=== PATIENT | male | born 1960 | race Two or more races ===

== ENCOUNTER 2019-09-06 05:57 | Inpatient (IN) | payer MEDICARE, OTHER ==
[2019-09-06] VITALS (16 sets, daily range): BP systolic 86–151; BP diastolic 50–98
[~2019-09-06] VITALS: Ht 185.4 cm; Wt 148.8 kg
--- NOTE | 2019-09-06 07:06 | Anethesia Preoperative Eval ---
Anesthesia Pre-op PMH/ROS General Date of Evaluation: Sep 06, 2019 Anesthesiologist: Kishore ASA Score: ASA 3 Mallampati Score Class I : Soft palate, uvula, fauces, pillars visible Class II: Soft palate, uvula, fauces visible Class III: Soft palate, base of uvula visible Class IV: Only hard plate visible Mallampati Classification: Class III Surgeon: Fatuma Diagnosis: BPH and bladder stones Surgical Procedure: Open simple prostatectomy and cystolitholopaxy Anesthesia History: none Family History: no anesthesia problems Allergies: Uncoded Allergies: plastic tape (Allergy, Intermediate, RASHES, 09/06/19) Medications: see eMAR Patient NPO?: Yes NPO Date: Sep 06, 2019 NPO Time: 00:00 Past Medical History Cardiovascular: Reports: HTN, arrhythmia - afib, other - HLD; Denies: CAD, [place], valve dz Pulmonary: Reports: JOSE; Denies: asthma, COPD, other Gastrointestinal/Genitourinary: Reports: GERD, other - BPH; Denies: CRI, ESRD Neurologic/Psychiatric: Reports: TIA; Denies: dementia, CVA, depression/anxiety, other Endocrine: Reports: DM - am glucose 128; Denies: hypothyroidism, steroids, other HEENT: Denies: cataract (L), cataract (R), glaucoma, GAKONA (L), GAKONA (R), other Hematology/Immune: Reports: DVT - left lower extremity-on xarelto, discontinued 13 days ago; Denies: anemia, bleeding disorder, other Musculoskeletal/Integumentary: Reports: other - LBP; Denies: OA, RA, DJD, DDD, edema Other: obesity PSxH Narrative: Denies Anesthesia Pre-op Phys. Exam Physician Exam Last Vital Signs Date Time Temp Pulse Resp B/P (MAP) Pulse Ox O2 Delivery O2 Flow Rate FiO2 09/06/19 06:41 97.7 107 20 124/98 (107) 96 Constitutional: NAD Cardiovascular: other - irregular Respiratory: other - dimished breath sounds bilaterally Airway Exam Mallampati Score: Class III MO: limited ROM: limited Teeth: intact Anesthesia Pre-op A/P Labs see chart Studies Pre-op Studies: EKG - afib, rate controlled, CXR - no acute cardiopulmonary process Risk Assessment & Plan Assessment: ASA III Plan: GA with modified RSI Status Change Before Surgery: No Pre-Antibiotics Drug: Ancef 2g Given Within 1 Hr of Incision: Yes Ileana Whitehead MD Sep 06, 2019 07:06
[2019-09-06] MEDS ORDERED: Bacitracin 50000 Units Vial ONE (07:09)
[2019-09-06] MEDS ORDERED: NITROFURANTOIN25 MG PO (07:11)
[2019-09-06] MEDS ORDERED: XARELTO10 MG ORAL (07:11)
[2019-09-06] MEDS ORDERED: CRESTOR10 M2 ORAL (07:12)
[2019-09-06] MEDS ORDERED: JANUMET 50-1,01 EACH ORAL (07:12)
[2019-09-06] MEDS ORDERED: METOPROLOL SUCC25 MG ORAL (07:12)
[2019-09-06] MEDS ORDERED: Succinylcholine 20mg/ml 10ml vial ONE (07:22)
[2019-09-06] MEDS ORDERED: Rocuronium Bromide 50mg/5ml Inj IV ONE (07:23)
[2019-09-06] MEDS ORDERED: NS Irrig 1000ml ONE (07:30)
[2019-09-06] MEDS ORDERED: Sterile Water Irrig 1000ml IRRIG ONE (07:30)
[2019-09-06] MEDS ORDERED: LR 1000ml ONE (07:30)
[2019-09-06] MEDS ORDERED: ProvayBlue 5mg/ml 10ml amp INJ ONE (07:30)
[2019-09-06] MEDS ORDERED: Propofol 200mg/20ml IV ONE (07:31)
[2019-09-06] MEDS ORDERED: Midazolam 2mg/2ml Inj ONE (07:31)
[2019-09-06] MEDS ORDERED: Lidocaine 1% MPF 10mg/ml 5ml ONE (07:31)
[2019-09-06] MEDS ORDERED: fentaNYL 100 mcg/2 mL IV ONE (07:31)
[2019-09-06] MEDS ORDERED: Metoclopramide 10mg/2ml Inj ONE (07:32)
--- NOTE | 2019-09-06 08:04 | Pre-Procedure Note/Attestation ---
Pre-Procedure Note/Attestation Complete Prior to Procedure Planned Procedure: not applicable Procedure Narrative: open prostatectomy with cystolyolopaxy Indications for Procedure Pre-Operative Diagnosis: bladder stones retention Attestation I attest that I discussed the nature of the procedure; its benefits; risks and complications; and alternatives (and the risks and benefits of such alternatives ), prior to the procedure, with the patient (or the patient's legal financial service representative). I attest that, if there was a reasonable possibility of needing a blood transfusion, the patient (or the patient's legal financial service representative) was given the [facility] standardized written summary, pursuant to the Eusebio Puckett Blood Safety Act ([place] Health and Safety Code # 1645, as amended). I attest that I re-evaluated the patient just prior to the surgery and that there has been no change in the patient's H&P, except as documented below: Fran Burris MD Sep 06, 2019 08:04
[2019-09-06] MEDS ORDERED: NS Irrig 1000ml IRRIG ONE (08:32)
[2019-09-06] MEDS ORDERED: LR 1000ml 1,000 ML IVLG SCH (08:41)
[2019-09-06] MEDS ORDERED: Hydromorphone 0.5mg/0.5ml inj IVP PRN (08:45)
[2019-09-06] MEDS ORDERED: fentaNYL 100 mcg/2 mL IV PRN (08:45)
[2019-09-06] MEDS ORDERED: LORazepam Inj 2mg/ml 1ml IV PRN (08:45)
[2019-09-06] MEDS ORDERED: Ketorolac 30mg Inj IV PRN (08:45)
[2019-09-06] MEDS ORDERED: DiphenhydrAMINE 50mg/ml Inj IVP PRN (08:45)
[2019-09-06] MEDS ORDERED: Midazolam 2mg/2ml Inj IVP PRN (08:45)
[2019-09-06] MEDS ORDERED: Metoclopramide 10mg/2ml Inj IVP PRN (08:45)
[2019-09-06] MEDS ORDERED: Sugammadex Sodium 200mg/2ml vial IV ONE (09:16)
--- NOTE | 2019-09-06 09:34 | Brief Operative Note ---
Immediate Post Operative Note Operative Note Pre-op Diagnosis: bladder stones retention Procedure: open prostectomy with cystolopaxy Post-op Diagnosis: same Post-op Diagnosis: same as pre-op Surgeon: Seth Burris Anesthesia: general Specimen: yes Complications: none Condition: stable Fluids: 1000 Estimated Blood Loss: minimal Implant(s) used?: No Fran Burris MD Sep 06, 2019 09:34
--- NOTE | 2019-09-06 09:37 | Immediate Post-Op Evaluation ---
Immediate Post-Op Evalulation Immediate Post-Op Evalulation Procedure: open prostatectomy and cystolitholopaxy Date of Evaluation: Sep 06, 2019 Time of Evaluation: 09:37 IV Fluids: 1.1L Blood Products: 0 Urinary Output: 0 Blood Pressure Systolic: 106 Blood Pressure Diastolic: 59 Pulse Rate: 90 Respiratory Rate: 18 O2 Sat by Pulse Oximetry: 97 Temperature (Fahrenheit): 97 Pain Score (1-10): 0 Nausea: No Vomiting: No Complications 0 Patient Status: awake, reacts, patent, none Hydration Status: adequate Drug: Ancef 2g Given Within 1 Hr of Incision: Yes Ileana Whitehead MD Sep 06, 2019 09:37
[2019-09-06 10:16] LABS: BASOPHILS % (AUTO) 0.4 % (0.0-2.0); EOSINOPHILS % (AUTO) 1.4 % (0.0-3.0); HEMATOCRIT 42.6 % (42.0-52.0); HEMOGLOBIN 14.2 G/DL (14.2-18.0); LYMPHOCYTES % (AUTO) 21.5 % (20.0-45.0); MEAN CORPUSCULAR VOLUME 90 FL (80-99); MONOCYTES % (AUTO) 7.3 % (1.0-10.0); NEUTROPHILS % (AUTO) 69.3 % (45.0-75.0); PLATELET COUNT 222 K/UL (150-450); RED BLOOD COUNT 4.72 M/UL (4.70-6.10); RED CELL DISTRIBUTION WIDTH 12.1 % (11.6-14.8); WHITE BLOOD COUNT 12.3 K/UL (4.8-10.8)
[2019-09-06 10:28] LABS: ANION GAP 8 mmol/L (5-15); BLOOD UREA NITROGEN 14 mg/dL (7-18); CALCIUM 10.6 MG/DL (8.5-10.1); CARBON DIOXIDE 28 MMOL/L (21-32); CHLORIDE 106 MMOL/L (98-107); CREATININE 1.5 MG/DL (0.55-1.30); PHOSPHORUS 3.3 MG/DL (2.5-4.9); POTASSIUM 4.6 MMOL/L (3.5-5.1); SODIUM 142 MMOL/L (136-145)
--- NOTE | 2019-09-06 10:45 | NUR ---
NURSE NOTES: Received report from TENNILLE Mendieta. Pt is a/o x 4, in bed. Denies any pain at this time. is at the bedside. Bautista catheter is patent. Lt hand IV access is patent. LR is running at this time. Bed in lowest position, call light within reach. Will continue to monitor.
--- NOTE | 2019-09-06 13:13 | NUR ---
CASE MANAGEMENT:REVIEW 58YR OLD MALE HERE FOR ELECTIVE SURGERY SI: BLADDER STONES RETENTION 97.2 195 18 124/74 95% ON 3L/NC WBC+12.3 CR+1.5 IS: TO SURGERY: OPEN PROCTECTOMY W/CYSTOLOPAXY IV ANCEF Q8HRS IVF@100/HR IV DILAUDID Q3HRS PRN : TO MED/SURG POST OP
[2019-09-06] MEDS: D5 1/2NS w/KCl 20mEq 1,000 ML IV SCH ×2 (13:54→23:04)
--- NOTE | 2019-09-06 14:40 | NUR ---
NURSE NOTES: Reconciles home meds with Dr. Esquivel. Dr. Esquivel ordered continue metoprolol, nitrofurantoin, crestor.
[2019-09-06] MEDS: ceFAZolin sod 2 GM in D5W 110 ML IV SCH ×2 (15:52→23:05)
[2019-09-06] MEDS: Docusate 100mg cap ORAL SCH (17:45)
--- NOTE | 2019-09-06 18:00 | NUR ---
NURSE NOTES: CBI (Intake 19,000ml, Output 18,000ml)
--- NOTE | 2019-09-06 19:24 | NUR ---
HAND-OFF: Report given to TENNILLE Gonzalez. Pt is stable.
--- NOTE | 2019-09-06 19:25 | NUR ---
NURSE NOTES: Received patient on bed, awake and verbally responsive. no sob. on nc @ 3lpm. with on going CBI. denies any pain and discomfort at the moment. family at the bedside. reiterated to call or ask for assistance. bed locked and in lowest position. call light and light button within easy reach. will continue plan of care.
[2019-09-06] MEDS: Atorvastatin 20mg tab ORAL SCH (20:56)
[2019-09-07 04:00] VITALS: BP 105/66
[2019-09-07 06:37] LABS: BASOPHILS % (AUTO) 0.6 % (0.0-2.0); EOSINOPHILS % (AUTO) 0.2 % (0.0-3.0); HEMATOCRIT 38.5 % (42.0-52.0); LYMPHOCYTES % (AUTO) 12.2 % (20.0-45.0); MEAN CORPUSCULAR VOLUME 91 FL (80-99); MONOCYTES % (AUTO) 13.4 % (1.0-10.0); NEUTROPHILS % (AUTO) 73.5 % (45.0-75.0); PLATELET COUNT 200 K/UL (150-450); RED BLOOD COUNT 4.23 M/UL (4.70-6.10); RED CELL DISTRIBUTION WIDTH 12.5 % (11.6-14.8); WHITE BLOOD COUNT 16.2 K/UL (4.8-10.8)
[2019-09-07 06:59] LABS: ANION GAP 6 mmol/L (5-15); BLOOD UREA NITROGEN 17 mg/dL (7-18); CALCIUM 9.9 MG/DL (8.5-10.1); CARBON DIOXIDE 28 MMOL/L (21-32); CHLORIDE 105 MMOL/L (98-107); CREATININE 1.7 MG/DL (0.55-1.30); POTASSIUM 4.5 MMOL/L (3.5-5.1); SODIUM 139 MMOL/L (136-145)
--- NOTE | 2019-09-07 07:19 | NUR ---
HAND-OFF: Report given to TENNILLE Jimenez. Pt in stable condition.
--- NOTE | 2019-09-07 07:22 | NUR ---
NURSE NOTES: Received report from TENNILLE Gonzalez. Rounding done with outgoing nurse. Pt a/o x 4, in bed. Denies any pain at this time. Surgical site dressing is stain. Pt is on CBI, light pinkish noted. Rt hand IV access is patent. Bed in lowest position, call light within reach. Will continue to monitor.
[2019-09-07 08:00] VITALS: BP 118/82
[2019-09-07] MEDS: Metoprolol Succinate XL 25mg tab ORAL SCH (08:42)
[2019-09-07] MEDS: Docusate 100mg cap ORAL SCH ×2 (08:42→17:14)
[2019-09-07] MEDS: D5 1/2NS w/KCl 20mEq 1,000 ML IV SCH (08:43)
--- NOTE | 2019-09-07 09:52 | NUR ---
NURSE NOTES: Dr. Burris ordered d/c iv fluid, change the dressing, keflex 500mg qid po. Order read back and will put it in.
--- NOTE | 2019-09-07 10:13 | 48 Hour Post Anesthesia Eval ---
Post Anesthesia Evaluation Procedure: open prostatectomy and cystolitholopaxy Date of Evaluation: Sep 07, 2019 Time of Evaluation: 10:12 Blood Pressure Systolic: 118 0: 64 Pulse Rate: 72 Respiratory Rate: 22 Temperature (Fahrenheit): 97.6 O2 Sat by Pulse Oximetry: 98 Airway: patent Nausea: No Vomiting: No Pain Intensity: 3 Hydration Status: adequate Cardiopulmonary Status: stable Mental Status/LOC: patient returned to baseline Follow-up Care/Observations: n/a Post-Anesthesia Complications: none Follow-up care needed: N/A Aayush Plasencia MD Sep 07, 2019 10:13
[2019-09-07] MEDS: Cephalexin 500mg cap ORAL SCH ×3 (11:50→23:34)
[2019-09-07 12:00] VITALS: BP 105/65
--- NOTE | 2019-09-07 12:46 | NUR ---
P.T Note: P.T evaluation competed and tx initiated. Please refer to P.T evaluation for current functional status. Pt is alert, O x 4 , pleasant and cooperative. present during P.T evaluation /tx. Pt is mostly limited by pain in the abdominal area and catheter insertions aggravated by movement initiations and walking. Pt require extended time and MIN A x 1 to completed supine to/from sitting , CGA x 1 for transfers and SBA X 1 for gait/ambulation activities using the FWW. Will continue with POC with progression of activities. Pt is cleared for OOB activities and hallway ambulation using the FWW with nursing supervision ( for IV pole assist ). Thank you for this referral.
[2019-09-07] MEDS ORDERED: NS Irrig 2000ml IRRIG ONE (14:53)
[2019-09-07] MEDS ORDERED: NS Irrig 1000ml ONE (14:53)
[2019-09-07] MEDS ORDERED: NS Irrig 4000ml IRRIG ONE (15:04)
--- NOTE | 2019-09-07 15:30 | Consultation ---
DATE OF CONSULTATION: 09/07/2019 INTERNAL MEDICINE CONSULTATION CONSULTING PHYSICIAN: Desmond Esquivel M.D. REFERRING PHYSICIAN: Fran Burris M.D. HISTORY OF PRESENT ILLNESS: This is a very pleasant 58-year-old male, who has undergone prostatectomy yesterday by Dr. Fran Burris. Surgery was uncomplicated and required cystolapaxy, this was done for bladder stone retention. The patient is doing well postoperative day #1. He has Bautista in place with bladder irrigation ongoing. PAST MEDICAL HISTORY: The patient has a complex past history, notable for obesity, previous TIA, atrial fibrillation, hyperlipidemia, previous left lower extremity DVT, sleep apnea, pulmonary embolism, BPH, low back pain, and diabetes mellitus. HOME MEDICATIONS: Reviewed and reconciled in chart and includes Xarelto. The patient has been taking Lipitor, metoprolol at home along with Xarelto PREVIOUS SURGERIES: None reported. REVIEW OF SYSTEMS: Denies any headaches, hematemesis, melena, hematochezia, night sweats, or weight loss. PHYSICAL EXAMINATION: GENERAL: Reveals a 58-year-old male. HEENT: Unremarkable. CHEST: Clear breath sounds bilaterally with normal heart sounds. ABDOMEN: Soft. EXTREMITIES: There is no edema. NEUROLOGIC: Nonfocal. LABORATORY DATA: Lab testing postop shows creatinine 1.7, glucose 161, hemoglobin of 13, white count 61666. IMPRESSION: 1. Postop day #1, status post prostatectomy and cystolapaxy. 2. Hyperglycemia/diabetes mellitus. 3. Atrial fibrillation, previously on anticoagulation. 4. Hypertension. 5. Hyperlipidemia. 6. History of previous DVT and PE. 7. History of chronic atrial fibrillation. DISCUSSION: Admit to the hospital. We will hold off anticoagulation for another 24 to 48 hours. Discussed with his outpatient industrial seamstress, Dr. Ritesh Atwood. Check labs in the a.m. Continue bladder irrigation. Initiate diabetes monitoring. We will follow carefully. Desmond Esquivel M.D. DR: JOANNA JOB#: [id number] CC:
[2019-09-07 16:00] VITALS: BP 134/70
--- NOTE | 2019-09-07 16:01 | Consultation ---
History of Present Illness General Date patient seen: Sep 07, 2019 Present Illness HPI This is a 14-year-old male who recently had his prostate removed by urology. Patient is very high risk postoperatively surgically given his extensive DVT history anticoagulation and surgery size and overall condition and comorbidities. Surgery was called to help evaluate as patient was having abdominal pain postoperatively needs better pain control. Patient seen, patient evaluated, chart reviewed. Allergies: Uncoded Allergies: plastic tape (Allergy, Intermediate, RASHES, 09/06/19) Medication History Scheduled Metoprolol Succinate* (Metoprolol Succinate*), 25 MG ORAL DAILY, (Reported) Rivaroxaban (Xarelto*), 20 MG ORAL DAILY, (Reported) Rosuvastatin Calcium* (Crestor*), 10 MG ORAL DAILY, (Reported) Sitagliptin Phos/Metformin Hcl (Janumet 50-1,000 Mg Tablet), 1 TAB ORAL TWICE A DAY, (Reported) Miscellaneous Medications Nitrofurantoin Macrocrystal (Nitrofurantoin), 100 MG PO, (Reported) Patient History History Provided By: Patient, Family Member, Medical Record, PMD Healthcare decision maker KEEGAN MARTINEZ - Resuscitation status Full Code Advanced Directive on File Past Medical/Surgical History Past Medical/Surgical History: (1) Urinary retention (2) Bladder stones Review of Systems Review of Symptoms General ROS: no weight loss or fever Psychological ROS: no depression or mood changes, no memory loss Ophthalmic ROS: no visual changes or eye irritation ENT ROS: no nasal congestion, hearing loss, dizziness Allergy and Immunology ROS: no allergic symptoms or urticaria Hematological and Lymphatic ROS: no swollen glands, unusual bleeding or bruising Endocrine ROS: no polyuria, polydipsia, weight changes, temperature intolerance Respiratory ROS: no cough, shortness of breath, or wheezing Cardiovascular ROS: no chest pain or dyspnea on exertion Gastrointestinal ROS: abdominal pain, bright red blood in stool. Musculoskeletal ROS: no myalgias or arthralgias Neurological ROS: no TIA or stroke symptoms Dermatological ROS: no new or changing skin lesions, rashes or pruritis Physical Exam Physical Exam General appearance: alert, cooperative, no distress, appears stated age Head: Normocephalic, without obvious abnormality, atraumatic Eyes: conjunctivae/corneas clear. PERRL, EOM's intact. Fundi benign Throat: Lips, mucosa, and tongue normal. Teeth and gums normal Neck: supple, symmetrical, trachea midline, no adenopathy, thyroid: not enlarged, symmetric, no tenderness/mass/nodules, no carotid bruit and no JVD Lungs: clear to auscultation bilaterally Heart: regular rate and rhythm, S1, S2 normal, no murmur, click, rub or gallop Abdomen: soft, tender. Bowel sounds absento masses, no organomegaly dressing in place saturated Extremities: extremities normal, atraumatic, no cyanosis or edema Pulses: 2+ and symmetric Skin: Skin color, texture, turgor normal. No rashes or lesions Neurologic: Grossly normal Last 24 Hour Vital Signs Date Time Temp Pulse Resp B/P (MAP) Pulse Ox O2 Delivery O2 Flow Rate FiO2 09/07/19 12:00 99.0 84 20 105/65 (78) 90 09/07/19 10:13 72 22 98 09/07/19 09:00 Room Air 09/07/19 08:42 99 118/82 09/07/19 08:00 98.0 99 18 118/82 (94) 93 09/07/19 04:00 98.6 122 18 105/66 (79) 94 09/06/19 23:53 98.5 114 17 102/54 (70) 93 09/06/19 21:00 Nasal Cannula 3.0 09/06/19 20:00 98.7 121 20 120/74 (89) 96 09/06/19 16:00 97.6 92 20 125/74 (91) 99 Intake and Output 09/06/19 09/07/19 19:00 07:00 Intake Total 1910 ml 1310 ml Output Total 2700 ml 1500 ml Balance -790 ml -190 ml Intake Oral 100 ml IV Total 1910 ml 1210 ml Output Urine Total 1000 ml 1500 ml Other 1700 ml Laboratory Tests Test 09/07/19 05:40 White Blood Count 16.2 K/UL (4.8-10.8) H Red Blood Count 4.23 M/UL (4.70-6.10) L Hemoglobin 13.0 G/DL (14.2-18.0) L Hematocrit 38.5 % (42.0-52.0) L Mean Corpuscular Volume 91 FL (80-99) Mean Corpuscular Hemoglobin 30.7 PG (27.0-31.0) Mean Corpuscular Hemoglobin Concent 33.7 G/DL (32.0-36.0) Red Cell Distribution Width 12.5 % (11.6-14.8) Platelet Count 200 K/UL (150-450) Mean Platelet Volume 7.9 FL (6.5-10.1) Neutrophils (%) (Auto) 73.5 % (45.0-75.0) Lymphocytes (%) (Auto) 12.2 % (20.0-45.0) L Monocytes (%) (Auto) 13.4 % (1.0-10.0) H Eosinophils (%) (Auto) 0.2 % (0.0-3.0) Basophils (%) (Auto) 0.6 % (0.0-2.0) Sodium Level 139 MMOL/L (136-145) Potassium Level 4.5 MMOL/L (3.5-5.1) Chloride Level 105 MMOL/L (98-107) Carbon Dioxide Level 28 MMOL/L (21-32) Anion Gap 6 mmol/L (5-15) Blood Urea Nitrogen 17 mg/dL (7-18) Creatinine 1.7 MG/DL (0.55-1.30) H Estimat Glomerular Filtration Rate 41.3 mL/min (>60) Glucose Level 161 MG/DL (74-106) H Calcium Level 9.9 MG/DL (8.5-10.1) Ionized Calcium (Measured) 1.29 mmol/L (1.10-1.35) Height (Feet): 6 Height (Inches): 1.00 Weight (Pounds): 328 Medications Current Medications Medications (Trade) Dose Ordered Sig/William Route PRN Reason Start Time Stop Time Status Last Admin Dose Admin Acetaminophen (Tylenol) 650 mg Q4H PRN ORAL FEVER 09/06/19 09:30 10/06/19 09:29 Acetaminophen (Tylenol) 650 mg Q6H PRN ORAL Mild Pain (Pain Scale 1-3) 09/06/19 09:30 10/06/19 09:29 Atorvastatin Calcium (Lipitor) 20 mg BEDTIME ORAL 09/06/19 21:00 10/06/19 20:59 Cephalexin (Keflex) 500 mg Q6HR ORAL 09/07/19 12:00 09/14/19 11:59 09/07/19 11:50 Dextrose (Dextrose 50%) 25 ml Q30M PRN IV Hypoglycemia 09/07/19 10:45 10/07/19 10:44 Dextrose (Dextrose 50%) 50 ml Q30M PRN IV Hypoglycemia 09/07/19 10:45 10/07/19 10:44 Docusate Sodium (Colace) 100 mg TWICE A DAY ORAL 09/06/19 18:00 10/06/19 17:59 09/07/19 08:42 Hydromorphone HCl (Dilaudid) 2 mg Q3H PRN IVP pain score 7-10 09/06/19 11:33 09/13/19 11:32 09/07/19 11:57 Metoprolol Succinate (Toprol XL) 25 mg DAILY ORAL 09/07/19 09:00 10/07/19 08:59 09/07/19 08:42 Nitrofurantoin (Macrobid) 100 mg DAILY ORAL 09/07/19 09:00 10/07/19 08:59 09/07/19 08:42 Ondansetron HCl (Zofran) 4 mg Q6H PRN IVP Nausea & Vomiting 09/06/19 09:30 10/06/19 09:29 Temazepam (RestoriL) 7.5 mg DAILYPRN PRN ORAL Insomnia 09/06/19 11:34 09/13/19 11:33 Assessment/Plan Problem List: (1) Urinary retention ICD Codes: R33.9 - Retention of urine, unspecified SNOMED: 049694559 (2) Bladder stones Assessment & Plan: Abdominal pain status post prostatectomy by urology Doing well Slowly getting out of bed History of DVT prior on anticoagulation High risk for bleeding postoperatively Started on prophylactic heparin Hold Lovenox given renal Tolerating diet Urine stable Dressings changed We will monitor closely he is very high risk for complication Thank you ICD Codes: N21.0 - Calculus in bladder SNOMED: [id number] Fred Foley Sep 07, 2019 16:01
--- NOTE | 2019-09-07 19:12 | NUR ---
HAND-OFF: Report given to TENNILLE Gonzalez. Pt is stable.
--- NOTE | 2019-09-07 19:40 | NUR ---
NURSE NOTES: Received report from TENNILLE Jimenez. Received pt in bed, AOx4, complaint of 4/10 pain, pt refused pain medication at this time. Abdominal surgical dressing c/d/i. CBI pinkish color without any clots noted. Bed in lowest position and locked, side rails up x 2, call light within reach. at bedside. Will continue to monitue.
[2019-09-07 20:00] VITALS: BP 108/75
[2019-09-07] MEDS: Atorvastatin 20mg tab ORAL SCH (20:32)
[2019-09-07] MEDS ORDERED: Enoxaparin 30mg Inj SUBQ SCH (21:00)
[2019-09-07] MEDS: Heparin 5000 units/ml inj SUBQ SCH (21:49)
[2019-09-07 23:56] VITALS: BP 131/81
--- NOTE | 2019-09-08 | NUR ---
NURSE NOTES: Hunt anchor changed per pt's request because states "hunt anchor is stained".
--- NOTE | 2019-09-08 03:15 | Operative Note - Dictated ---
DATE OF OPERATION: 09/06/2019 PREOPERATIVE DIAGNOSES: Chronic urinary retention, BPH, and bladder stones. POSTOPERATIVE DIAGNOSES: Chronic urinary retention, BPH, and bladder stones. OPERATION: Simple retropubic prostatectomy with open cystolitholapaxy. GLOBAL SUPPLY CHAIN VICE PRESIDENT: Fran Burris M.D. ANESTHESIA: General. FINDINGS: Very large prostate with multiple bladder stones. INDICATIONS FOR SURGERY: The patient had acute urinary retention. He failed several voiding trials. He had a very large more than 182 g prostate as well as bladder stones. Treatment options were explained to him in great length including all potential complications. He signed a consent. PROCEDURE IN DETAIL: He was brought to the operating room, placed in supine position, prepped and draped in standard fashion. A midline low anterior incision was made space was opened and bladder was mobilized to get into the prostate. Prostate capsule was opened approximately 5 cm and adenoma was enucleated in 1 piece preserving the external sphincter. After that, cystolitholapaxy with removal of bladder stones through the bladder neck was performed and hemostatic sutures at 5 and 7 o'clock as well as bladder mucosa into the prostatic capsule with [id number] sutures. Hemostasis. Capsule was closed over a 3-way 24-Faroese Bautista catheter. CBI was started. No evidence of clots. Estimated blood was approximately 50 mL. Wound was closed in multiple layers. Anna were for the skin . ESTIMATED BLOOD LOSS: 50 mL. Fran Burris M.D. DR: ASHLEY JOB#: [id number] CC:
[2019-09-08 04:58] VITALS: BP 119/80
[2019-09-08] MEDS: Cephalexin 500mg cap ORAL SCH ×3 (06:09→17:40)
[2019-09-08] MEDS: Heparin 5000 units/ml inj SUBQ SCH ×3 (06:11→20:56)
[2019-09-08 06:34] LABS: INR 1.1 (0.9-1.1)
[2019-09-08 06:49] LABS: ANION GAP 10 mmol/L (5-15); BLOOD UREA NITROGEN 13 mg/dL (7-18); CALCIUM 10.9 MG/DL (8.5-10.1); CARBON DIOXIDE 25 MMOL/L (21-32); CHLORIDE 102 MMOL/L (98-107); CREATININE 1.2 MG/DL (0.55-1.30); POTASSIUM 4.4 MMOL/L (3.5-5.1); SODIUM 137 MMOL/L (136-145)
--- NOTE | 2019-09-08 07:00 | NUR ---
NURSE NOTES: Received call from Nhi from the lab, lavender top that was drawn this am clotted. She will send someone to redraw lavender top. Endorsed to am nurse TENNILLE Teran.
--- NOTE | 2019-09-08 07:38 | NUR ---
HAND-OFF: Report given to TENNILLE Teran. Pt in stable condition.
[2019-09-08 08:00] VITALS: BP 130/61
[2019-09-08 08:22] LABS: HEMATOCRIT 39.4 % (42.0-52.0); HEMOGLOBIN 13.2 G/DL (14.2-18.0); MEAN CORPUSCULAR VOLUME 91 FL (80-99); PLATELET COUNT 234 K/UL (150-450); RED BLOOD COUNT 4.35 M/UL (4.70-6.10); RED CELL DISTRIBUTION WIDTH 12.4 % (11.6-14.8); WHITE BLOOD COUNT 19.9 K/UL (4.8-10.8)
[2019-09-08] MEDS: Docusate 100mg cap ORAL SCH ×2 (08:33→17:40)
[2019-09-08] MEDS: Metoprolol Succinate XL 25mg tab ORAL SCH (08:33)
[2019-09-08] MEDS ORDERED: Milk of Magnesia 30ml Ud ORAL SCH (10:30)
[2019-09-08 12:00] VITALS: BP 131/74
--- NOTE | 2019-09-08 15:55 | Pulmonology Progress Note ---
Assessment/Plan Assessment/Plan IMPRESSION: 1. Postop day #3, status post prostatectomy and cystolapaxy. 2. Hyperglycemia/diabetes mellitus. 3. Atrial fibrillation, previously on anticoagulation. 4. Hypertension. 5. Hyperlipidemia. 6. History of previous DVT and PE. 7. History of chronic atrial fibrillation. DISCUSSION: Check labs in the a.m. Continue bladder irrigation. Initiate diabetes monitoring. I will follow carefully. Noted high WBC; will observe Desmond Esquivel M.D. Subjective Interval Events: WBC 19 k; no new symptoms Constitutional: Reports: no symptoms HEENT: Repors: no symptoms Respiratory: Reports: no symptoms Cardiovascular: Reports: no symptoms Gastrointestinal/Abdominal: Reports: no symptoms Genitourinary: Reports: no symptoms Allergies: Uncoded Allergies: plastic tape (Allergy, Intermediate, RASHES, 09/06/19) Objective Last 24 Hour Vital Signs Date Time Temp Pulse Resp B/P (MAP) Pulse Ox O2 Delivery O2 Flow Rate FiO2 09/08/19 12:00 98.0 78 20 131/74 (93) 94 09/08/19 09:00 Room Air 09/08/19 08:33 105 130/61 09/08/19 08:00 98.1 105 20 130/61 (84) 95 09/08/19 04:58 98.5 108 20 119/80 (93) 97 09/07/19 23:56 98.2 121 20 131/81 (98) 96 09/07/19 21:00 Nasal Cannula 2.0 09/07/19 20:00 98.6 103 20 108/75 (86) 97 09/07/19 16:00 98.4 104 20 134/70 (91) 93 Intake and Output 09/07/19 09/08/19 19:00 07:00 Intake Total 200 ml 700 ml Output Total 1700 ml Balance 200 ml -1000 ml Intake Oral 700 ml IV Total 200 ml Output Urine Total 1700 ml General Appearance: no acute distress HEENT: normocephalic Respiratory/Chest: chest wall non-tender, lungs clear Cardiovascular: normal peripheral pulses, normal rate Abdomen: normal bowel sounds Microbiology Date/Time Source Procedure Growth Status 09/06/19 06:30 Nasal Nares MRSA Culture - Final NO METHICILLIN RESISTANT STAPH AUREUS... Complete Laboratory Tests 09/08/19 05:35: Prothrombin Time 11.9H, Prothromb Time International Ratio 1.1, Activated Partial Thromboplast Time 26, Sodium Level 137, Potassium Level 4.4, Chloride Level 102, Carbon Dioxide Level 25, Anion Gap 10, Blood Urea Nitrogen 13, Creatinine 1.2, Estimat Glomerular Filtration Rate > 60, Glucose Level 132H, Calcium Level 10.9H 09/08/19 07:46: White Blood Count 19.9H, Red Blood Count 4.35L, Hemoglobin 13.2L, Hematocrit 39.4L, Mean Corpuscular Volume 91, Mean Corpuscular Hemoglobin 30.2, Mean Corpuscular Hemoglobin Concent 33.4, Red Cell Distribution Width 12.4, Platelet Count 234, Mean Platelet Volume 7.8, Neutrophils (%) (Auto) , Lymphocytes (%) ( Auto) , Monocytes (%) (Auto) , Eosinophils (%) (Auto) , Basophils (%) (Auto) , Differential Total Cells Counted 100, Neutrophils % (Manual) 71, Lymphocytes % ( Manual) 16L, Monocytes % (Manual) 11H, Eosinophils % (Manual) 2, Basophils % ( Manual) 0, Band Neutrophils 0, Platelet Estimate Adequate, Platelet Morphology Normal, Red Blood Cell Morphology Normal Current Medications Medications (Trade) Dose Ordered Sig/William Route PRN Reason Start Time Stop Time Status Last Admin Dose Admin Acetaminophen (Tylenol) 650 mg Q4H PRN ORAL FEVER 09/06/19 09:30 10/06/19 09:29 Acetaminophen (Tylenol) 650 mg Q6H PRN ORAL Mild Pain (Pain Scale 1-3) 09/06/19 09:30 10/06/19 09:29 Atorvastatin Calcium (Lipitor) 20 mg BEDTIME ORAL 09/06/19 21:00 10/06/19 20:59 09/07/19 20:32 Cephalexin (Keflex) 500 mg Q6HR ORAL 09/07/19 12:00 09/14/19 11:59 09/08/19 12:35 Dextrose (Dextrose 50%) 25 ml Q30M PRN IV Hypoglycemia 09/07/19 10:45 10/07/19 10:44 Dextrose (Dextrose 50%) 50 ml Q30M PRN IV Hypoglycemia 09/07/19 10:45 10/07/19 10:44 Docusate Sodium (Colace) 100 mg TWICE A DAY ORAL 09/06/19 18:00 10/06/19 17:59 09/08/19 08:33 Heparin Sodium (Porcine) (Heparin 5000 units/ml) 5,000 units EVERY 8 HOURS SUBQ 09/07/19 22:00 10/07/19 21:59 09/08/19 14:57 Hydromorphone HCl (Dilaudid) 2 mg Q3H PRN IVP pain score 7-10 09/06/19 11:33 09/13/19 11:32 09/08/19 01:24 Metoprolol Succinate (Toprol XL) 25 mg DAILY ORAL 09/07/19 09:00 10/07/19 08:59 09/08/19 08:33 Ondansetron HCl (Zofran) 4 mg Q6H PRN IVP Nausea & Vomiting 09/06/19 09:30 10/06/19 09:29 Temazepam (RestoriL) 7.5 mg DAILYPRN PRN ORAL Insomnia 09/06/19 11:34 09/13/19 11:33 Desmond Esquivel MD Sep 08, 2019 15:55
[2019-09-08 16:00] VITALS: BP 100/65
--- NOTE | 2019-09-08 16:12 | NUR ---
CASE MANAGEMENT:REVIEW 09/08/19 SI: POD#2 SIMPLE RETROPUBIC PROCTECTOMY WITH OPEN CYSTOLITHOLAPAXY BLADDER STONES RETENTION 98.1 105 20 130/61 95% ON RA WBC+19.9 CA+ 10.9 BG 132 PT 11.9 IS: HEPARIN SQ Q8HR KEFLEX PO Q6HR TOPROL XL PO QD IV DILAUDID Q3HR/PRN : 3E MED SURG UNIT DCP: HOME WHEN STABLE PLAN: URINE CX- PENDING
--- NOTE | 2019-09-08 17:10 | Surgery Progress Note ---
Surgery Progress Note Subjective Symptoms: improved, tolerating diet, voiding well Objective Last 24 Hour Vital Signs Date Time Temp Pulse Resp B/P (MAP) Pulse Ox O2 Delivery O2 Flow Rate FiO2 09/08/19 12:00 98.0 78 20 131/74 (93) 94 09/08/19 09:00 Room Air 09/08/19 08:33 105 130/61 09/08/19 08:00 98.1 105 20 130/61 (84) 95 09/08/19 04:58 98.5 108 20 119/80 (93) 97 09/07/19 23:56 98.2 121 20 131/81 (98) 96 09/07/19 21:00 Nasal Cannula 2.0 09/07/19 20:00 98.6 103 20 108/75 (86) 97 I&O Intake and Output 09/07/19 09/08/19 19:00 07:00 Intake Total 200 ml 700 ml Output Total 1700 ml Balance 200 ml -1000 ml Intake Oral 700 ml IV Total 200 ml Output Urine Total 1700 ml Dressing: saturated Wound: clean Cardiovascular: RSR Respiratory: clear, decreased breath sounds Abdomen: soft, non-tender, present bowel sounds Extremities: no edema, no tenderness, no cyanosis Laboratory Tests Test 09/08/19 05:35 09/08/19 07:46 Prothrombin Time 11.9 SEC (9.30-11.50) H Prothromb Time International Ratio 1.1 (0.9-1.1) Activated Partial Thromboplast Time 26 SEC (23-33) Sodium Level 137 MMOL/L (136-145) Potassium Level 4.4 MMOL/L (3.5-5.1) Chloride Level 102 MMOL/L (98-107) Carbon Dioxide Level 25 MMOL/L (21-32) Anion Gap 10 mmol/L (5-15) Blood Urea Nitrogen 13 mg/dL (7-18) Creatinine 1.2 MG/DL (0.55-1.30) Estimat Glomerular Filtration Rate > 60 mL/min (>60) Glucose Level 132 MG/DL (74-106) H Calcium Level 10.9 MG/DL (8.5-10.1) H White Blood Count 19.9 K/UL (4.8-10.8) H Red Blood Count 4.35 M/UL (4.70-6.10) L Hemoglobin 13.2 G/DL (14.2-18.0) L Hematocrit 39.4 % (42.0-52.0) L Mean Corpuscular Volume 91 FL (80-99) Mean Corpuscular Hemoglobin 30.2 PG (27.0-31.0) Mean Corpuscular Hemoglobin Concent 33.4 G/DL (32.0-36.0) Red Cell Distribution Width 12.4 % (11.6-14.8) Platelet Count 234 K/UL (150-450) Mean Platelet Volume 7.8 FL (6.5-10.1) Neutrophils (%) (Auto) % (45.0-75.0) Lymphocytes (%) (Auto) % (20.0-45.0) Monocytes (%) (Auto) % (1.0-10.0) Eosinophils (%) (Auto) % (0.0-3.0) Basophils (%) (Auto) % (0.0-2.0) Differential Total Cells Counted 100 Neutrophils % (Manual) 71 % (45-75) Lymphocytes % (Manual) 16 % (20-45) L Monocytes % (Manual) 11 % (1-10) H Eosinophils % (Manual) 2 % (0-3) Basophils % (Manual) 0 % (0-2) Band Neutrophils 0 % (0-8) Platelet Estimate Adequate Platelet Morphology Normal Red Blood Cell Morphology Normal Plan Problems: (1) Urinary retention Assessment & Plan: Abdominal pain status post prostatectomy by urology Doing well Slowly getting out of bed History of DVT prior on anticoagulation High risk for bleeding postoperatively Started on prophylactic heparin yesterday Hold Lovenox given renal Tolerating diet Urine stable Dressings changed We will monitor closely he is very high risk for complication Thank you (2) Bladder stones Fred Foley Sep 08, 2019 17:10
[2019-09-08] MEDS: Piperacillin/Tazobactam 3.375 GM in NS 110 ML IVPB SCH (17:41)
--- NOTE | 2019-09-08 19:56 | NUR ---
NURSES NOTE: Met pt in bed, A/OX4, able to express needs. Family at bed side. Pt denies pain at this time. No outward s/s of distress noted. Breathing is even and unlabored on RA. [address] way hunt catheter in place, draining with gravity. Ns infusing. Incision site, abdomen, open to air with jessica. IV R hand patent, infusing properly with no s/s of infiltration or infection. All due meds will be given. Call light within reach, bed at lowest level. Pt will continue to be monitored.
[2019-09-08 20:00] VITALS: BP 148/79
--- NOTE | 2019-09-08 20:06 | NUR ---
NURSE NOTES: Patient remained safe during my shift CBI clear except patient when ambulating it gets pink, denies pain, Urine culture sent. patient reported abdominal pain and distention unable to pass bowel since 09/[address] Burris aware order received patient able to move bowel before the medication administration and refused taking the medication. ambulated in the hole way with spouse.
[2019-09-08] MEDS: Atorvastatin 20mg tab ORAL SCH (20:56)
[2019-09-09] VITALS: BP 145/70
[2019-09-09] MEDS: Piperacillin/Tazobactam 3.375 GM in NS 110 ML IVPB SCH ×3 (00:29→16:41)
[2019-09-09] MEDS: Cephalexin 500mg cap ORAL SCH ×4 (00:29→17:32)
[2019-09-09] MEDS: Heparin 5000 units/ml inj SUBQ SCH ×3 (06:13→21:35)
[2019-09-09 06:41] LABS: BASOPHILS % (AUTO) 0.8 % (0.0-2.0); EOSINOPHILS % (AUTO) 2.4 % (0.0-3.0); HEMATOCRIT 36.3 % (42.0-52.0); HEMOGLOBIN 12.4 G/DL (14.2-18.0); LYMPHOCYTES % (AUTO) 20.7 % (20.0-45.0); MEAN CORPUSCULAR VOLUME 90 FL (80-99); MONOCYTES % (AUTO) 11.4 % (1.0-10.0); NEUTROPHILS % (AUTO) 64.8 % (45.0-75.0); PLATELET COUNT 204 K/UL (150-450); RED BLOOD COUNT 4.05 M/UL (4.70-6.10); RED CELL DISTRIBUTION WIDTH 12.5 % (11.6-14.8); WHITE BLOOD COUNT 10.7 K/UL (4.8-10.8)
[2019-09-09 07:00] LABS: ANION GAP 8 mmol/L (5-15); BLOOD UREA NITROGEN 12 mg/dL (7-18); CALCIUM 11.1 MG/DL (8.5-10.1); CARBON DIOXIDE 29 MMOL/L (21-32); CHLORIDE 105 MMOL/L (98-107); CREATININE 1.2 MG/DL (0.55-1.30); SODIUM 142 MMOL/L (136-145)
--- NOTE | 2019-09-09 07:45 | NUR ---
NURSE NOTES: Pt lying in bed w/ at bedside, bed in lowest position, and call light within reach. Pt A&Ox4, VSS, and in no apparent distress. IV site intact/asymptomatic & H/L'd and surgical site C/D/I w/some erythema noted around jessica; continuous bladder irrigation still in place w/pink urinary output. Pt has no complaints or concerns at this time. Will continue to monitor.
[2019-09-09 08:00] VITALS: BP 112/78
--- NOTE | 2019-09-09 08:00 | NUR ---
HAND OFF: Report given to robb Conrad. Pt in stable condition.
[2019-09-09] MEDS: Docusate 100mg cap ORAL SCH ×2 (09:16→17:32)
[2019-09-09] MEDS: Metoprolol Succinate XL 25mg tab ORAL SCH (09:16)
--- NOTE | 2019-09-09 11:40 | Surgery Progress Note ---
Surgery Progress Note Subjective Symptoms: improved, tolerating diet, voiding well, passing flatus, BM Objective Last 24 Hour Vital Signs Date Time Temp Pulse Resp B/P (MAP) Pulse Ox O2 Delivery O2 Flow Rate FiO2 09/09/19 09:16 104 112/78 09/09/19 09:00 Room Air 09/09/19 08:00 97.0 104 20 112/78 (89) 100 09/09/19 00:00 98.3 73 145/70 (95) 97 09/08/19 21:00 Room Air 09/08/19 20:00 97.5 122 18 148/79 (102) 96 09/08/19 16:00 98.5 112 20 100/65 (77) 96 09/08/19 12:00 98.0 78 20 131/74 (93) 94 I&O Intake and Output 09/08/19 09/09/19 19:00 07:00 Intake Total 300 ml 1295.0 ml Output Total 4600 ml Balance 300 ml -3305.0 ml Intake Oral 300 ml 1240 ml IV Total 55.0 ml Output Urine Total 4600 ml # Bowel Movements 1 Dressing: dry Wound: clean Cardiovascular: RSR Respiratory: clear Abdomen: soft, tenderness, present bowel sounds, non-distended Extremities: no edema, no tenderness, no cyanosis Laboratory Tests Test 09/09/19 06:00 White Blood Count 10.7 K/UL (4.8-10.8) Red Blood Count 4.05 M/UL (4.70-6.10) L Hemoglobin 12.4 G/DL (14.2-18.0) L Hematocrit 36.3 % (42.0-52.0) L Mean Corpuscular Volume 90 FL (80-99) Mean Corpuscular Hemoglobin 30.7 PG (27.0-31.0) Mean Corpuscular Hemoglobin Concent 34.3 G/DL (32.0-36.0) Red Cell Distribution Width 12.5 % (11.6-14.8) Platelet Count 204 K/UL (150-450) Mean Platelet Volume 7.8 FL (6.5-10.1) Neutrophils (%) (Auto) 64.8 % (45.0-75.0) Lymphocytes (%) (Auto) 20.7 % (20.0-45.0) Monocytes (%) (Auto) 11.4 % (1.0-10.0) H Eosinophils (%) (Auto) 2.4 % (0.0-3.0) Basophils (%) (Auto) 0.8 % (0.0-2.0) Sodium Level 142 MMOL/L (136-145) Potassium Level 4.0 MMOL/L (3.5-5.1) Chloride Level 105 MMOL/L (98-107) Carbon Dioxide Level 29 MMOL/L (21-32) Anion Gap 8 mmol/L (5-15) Blood Urea Nitrogen 12 mg/dL (7-18) Creatinine 1.2 MG/DL (0.55-1.30) Estimat Glomerular Filtration Rate > 60 mL/min (>60) Glucose Level 147 MG/DL (74-106) H Calcium Level 11.1 MG/DL (8.5-10.1) H Plan Problems: (1) Urinary retention (2) Bladder stones Assessment & Plan: Abdominal pain status post prostatectomy by urology Doing well Slowly getting out of bed History of DVT prior on anticoagulation High risk for bleeding postoperatively Started on prophylactic heparin Hold Lovenox given renal Tolerating diet Urine stable wound noted will monitor heparin diet ambulatory improving We will monitor closely he is very high risk for complication Thank you Fred Foley Sep 09, 2019 11:40
[2019-09-09 12:00] VITALS: BP 133/88
[2019-09-09 16:00] VITALS: BP 133/70
--- NOTE | 2019-09-09 16:44 | NUR ---
PT note Attempted to see patient x 2 for treatment but patient states that he just finished walking with his this AM. Patient seen in PM, ambulating with his in the hallway. Movements are antalgic but steady. 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 Patient is aware of his limitations. He knows his HEP's. Patient and verbalized understanding of the need to increase OOB activities and ambulation.
--- NOTE | 2019-09-09 17:21 | NUR ---
NURSE NOTES: Notified Dr. Esquivel of pt's pulse of 120/apical pulse of 115 and irregular pulse on palpation; MD aware of pt's hx of a-fib. No new orders given. Will continue to monitor.
--- NOTE | 2019-09-09 17:34 | Pulmonology Progress Note ---
Assessment/Plan Assessment/Plan IMPRESSION: 1. Postop day #4, status post prostatectomy and cystolapaxy. 2. Hyperglycemia/diabetes mellitus. 3. Atrial fibrillation, previously on anticoagulation. 4. Hypertension. 5. Hyperlipidemia. 6. History of previous DVT and PE. 7. History of chronic atrial fibrillation. DISCUSSION: Check labs in the a.m. Continue bladder irrigation. Initiate diabetes monitoring. I will follow carefully. Noted high WBC; added abx yesterday Desmond Esquivel M.D. Subjective Interval Events: Feeling better, HR high Constitutional: Reports: no symptoms HEENT: Repors: no symptoms Respiratory: Reports: no symptoms Cardiovascular: Reports: no symptoms Allergies: Uncoded Allergies: plastic tape (Allergy, Intermediate, RASHES, 09/06/19) Objective Last 24 Hour Vital Signs Date Time Temp Pulse Resp B/P (MAP) Pulse Ox O2 Delivery O2 Flow Rate FiO2 09/09/19 16:30 115 09/09/19 16:00 97.3 120 20 133/70 (91) 100 09/09/19 12:00 98.7 121 20 133/88 (103) 100 09/09/19 09:16 104 112/78 09/09/19 09:00 Room Air 09/09/19 08:00 97.0 104 20 112/78 (89) 100 09/09/19 00:00 98.3 73 145/70 (95) 97 09/08/19 21:00 Room Air 09/08/19 20:00 97.5 122 18 148/79 (102) 96 Intake and Output 09/08/19 09/09/19 19:00 07:00 Intake Total 300 ml 1295.0 ml Output Total 4600 ml Balance 300 ml -3305.0 ml Intake Oral 300 ml 1240 ml IV Total 55.0 ml Output Urine Total 4600 ml # Bowel Movements 1 General Appearance: no acute distress HEENT: normocephalic Respiratory/Chest: chest wall non-tender Cardiovascular: normal peripheral pulses Abdomen: normal bowel sounds Microbiology Date/Time Source Procedure Growth Status 09/08/19 17:30 Indwelling Cath Urine Culture - Preliminary NO GROWTH Resulted Laboratory Tests 09/09/19 06:00: White Blood Count 10.7, Red Blood Count 4.05L, Hemoglobin 12.4L, Hematocrit 36.3L, Mean Corpuscular Volume 90, Mean Corpuscular Hemoglobin 30.7, Mean Corpuscular Hemoglobin Concent 34.3, Red Cell Distribution Width 12.5, Platelet Count 204, Mean Platelet Volume 7.8, Neutrophils (%) (Auto) 64.8, Lymphocytes (% ) (Auto) 20.7, Monocytes (%) (Auto) 11.4H, Eosinophils (%) (Auto) 2.4, Basophils (%) (Auto) 0.8, Sodium Level 142, Potassium Level 4.0, Chloride Level 105, Carbon Dioxide Level 29, Anion Gap 8, Blood Urea Nitrogen 12, Creatinine 1.2, Estimat Glomerular Filtration Rate > 60, Glucose Level 147H, Calcium Level 11.1H Current Medications Medications (Trade) Dose Ordered Sig/William Route PRN Reason Start Time Stop Time Status Last Admin Dose Admin Acetaminophen (Tylenol) 650 mg Q4H PRN ORAL FEVER 09/06/19 09:30 10/06/19 09:29 Acetaminophen (Tylenol) 650 mg Q6H PRN ORAL Mild Pain (Pain Scale 1-3) 09/06/19 09:30 10/06/19 09:29 Atorvastatin Calcium (Lipitor) 20 mg BEDTIME ORAL 09/06/19 21:00 10/06/19 20:59 09/08/19 20:56 Cephalexin (Keflex) 500 mg Q6HR ORAL 09/07/19 12:00 09/14/19 11:59 09/09/19 17:32 Dextrose (Dextrose 50%) 25 ml Q30M PRN IV Hypoglycemia 09/07/19 10:45 10/07/19 10:44 Dextrose (Dextrose 50%) 50 ml Q30M PRN IV Hypoglycemia 09/07/19 10:45 10/07/19 10:44 Docusate Sodium (Colace) 100 mg TWICE A DAY ORAL 09/06/19 18:00 10/06/19 17:59 09/09/19 17:32 Heparin Sodium (Porcine) (Heparin 5000 units/ml) 5,000 units EVERY 8 HOURS SUBQ 09/07/19 22:00 10/07/19 21:59 09/09/19 13:52 Hydromorphone HCl (Dilaudid) 2 mg Q3H PRN IVP pain score 7-10 09/06/19 11:33 09/13/19 11:32 09/08/19 01:24 Metoprolol Succinate (Toprol XL) 25 mg DAILY ORAL 09/07/19 09:00 10/07/19 08:59 09/09/19 09:16 Ondansetron HCl (Zofran) 4 mg Q6H PRN IVP Nausea & Vomiting 09/06/19 09:30 10/06/19 09:29 Piperacillin Sod/ Tazobactam Sod 3.375 gm/Sodium Chloride 110 ml @ 27.5 mls/hr Q8H IVPB 09/08/19 16:30 09/15/19 16:29 09/09/19 16:41 Temazepam (RestoriL) 7.5 mg DAILYPRN PRN ORAL Insomnia 09/06/19 11:34 09/13/19 11:33 Desmond Esquivel MD Sep 09, 2019 17:34
--- NOTE | 2019-09-09 19:15 | NUR ---
NURSE NOTES: Receive a report from TENNILLE Liu. Round is done. Pt is lying in bed and awake, having guests at bed side. No acute distress noted. Denies any pain. On N/S irrigation via 3way hunt catheter and draining urine with blood clots. And checking urine output. Call light within reach. Will continue to monitor.
--- NOTE | 2019-09-09 19:24 | NUR ---
HAND-OFF: Report given to TENNILLE Ann.
[2019-09-09 20:00] VITALS: BP 139/96
--- NOTE | 2019-09-09 21:00 | NUR ---
NURSE NOTES: Surgery site is open without any discharge clean but noted redness on skin along the jessica. Offer to apply ice bag but refuses. On running N/S irrigation via hunt catheter. Will continue to monitor.
[2019-09-09] MEDS: Atorvastatin 20mg tab ORAL SCH (21:34)
[2019-09-10] VITALS: BP 115/77
[2019-09-10] MEDS: Cephalexin 500mg cap ORAL SCH ×3 (00:16→12:13)
[2019-09-10] MEDS: Piperacillin/Tazobactam 3.375 GM in NS 110 ML IVPB SCH ×2 (00:16→08:53)
[2019-09-10 04:00] VITALS: BP 148/105
--- NOTE | 2019-09-10 04:35 | NUR ---
NURSE NOTES: Noted less blood clots via hunt catheter with NS irrigation. Pt is aware of removing hunt catheter today. Encourage ambulation. Will continue to monitor.
[2019-09-10] MEDS: Heparin 5000 units/ml inj SUBQ SCH ×2 (05:51→14:00)
[2019-09-10 06:34] LABS: EOSINOPHILS % (AUTO) 4.9 % (0.0-3.0); HEMATOCRIT 35.6 % (42.0-52.0); HEMOGLOBIN 12.2 G/DL (14.2-18.0); LYMPHOCYTES % (AUTO) 25.8 % (20.0-45.0); MEAN CORPUSCULAR VOLUME 89 FL (80-99); NEUTROPHILS % (AUTO) 57.3 % (45.0-75.0); PLATELET COUNT 238 K/UL (150-450); RED BLOOD COUNT 3.98 M/UL (4.70-6.10)
[2019-09-10 06:48] LABS: ANION GAP 11 mmol/L (5-15); BLOOD UREA NITROGEN 13 mg/dL (7-18); CALCIUM 10.8 MG/DL (8.5-10.1); CARBON DIOXIDE 27 MMOL/L (21-32); CHLORIDE 105 MMOL/L (98-107); CREATININE 1.3 MG/DL (0.55-1.30); POTASSIUM 3.6 MMOL/L (3.5-5.1); SODIUM 143 MMOL/L (136-145)
--- NOTE | 2019-09-10 07:45 | NUR ---
HAND-OFF: Report given to TENNILLE Liu. Round is done.
--- NOTE | 2019-09-10 07:45 | NUR ---
NURSE NOTES: Pt lying in bed w/ at bedside, bed in lowest position, and call light within reach. Pt A&Ox4, VSS, and in no apparent distress. IV site intact/asymptomatic & H/L'd; surgical site C/D/I & MAKEDA; and bladder still being irrigated continuously. Reminded pt F/C will bed D/C'd this morning; pt verbalized understanding and had no questions or concerns at this time. Will continue monitor.
[2019-09-10 08:00] VITALS: BP 154/101
--- NOTE | 2019-09-10 08:45 | NUR ---
NURSE NOTES: D/C'd pt's Bautista and emptied about 700 ml of pink urine from drainage bag; pt tolerated fairly well. Informed pt to notify me once he voids on his own. Will continue to monitor.
[2019-09-10] MEDS: Docusate 100mg cap ORAL SCH (08:53)
[2019-09-10] MEDS: Metoprolol Succinate XL 25mg tab ORAL SCH (08:53)
[2019-09-10] MEDS ORDERED: NORCO 5-325 TA1 EACH ORAL (10:33)
--- NOTE | 2019-09-10 10:35 | Pulmonology Progress Note ---
Assessment/Plan Assessment/Plan IMPRESSION: 1. Postop day #5, status post prostatectomy and cystolapaxy. 2. Hyperglycemia/diabetes mellitus. 3. Atrial fibrillation, previously on anticoagulation. 4. Hypertension. 5. Hyperlipidemia. 6. History of previous DVT and PE. 7. History of chronic atrial fibrillation. DISCUSSION: DC home Bautista DC WBC normal Resume Xarelto Desmond Esquivel M.D. Subjective Interval Events: None new; folwy dc Constitutional: Reports: no symptoms HEENT: Repors: no symptoms Respiratory: Reports: no symptoms Cardiovascular: Reports: no symptoms Gastrointestinal/Abdominal: Reports: no symptoms Allergies: Uncoded Allergies: plastic tape (Allergy, Intermediate, RASHES, 09/06/19) Objective Last 24 Hour Vital Signs Date Time Temp Pulse Resp B/P (MAP) Pulse Ox O2 Delivery O2 Flow Rate FiO2 09/10/19 08:53 83 154/101 09/10/19 08:00 98.4 83 18 154/101 (118) 96 09/10/19 04:00 97.2 116 18 148/105 (119) 97 09/10/19 00:00 98.9 123 16 115/77 (90) 97 09/09/19 21:00 Room Air 09/09/19 20:00 98.4 99 20 139/96 (110) 96 09/09/19 16:30 115 09/09/19 16:00 97.3 120 20 133/70 (91) 100 09/09/19 12:00 98.7 121 20 133/88 (103) 100 Intake and Output 09/09/19 09/10/19 19:00 07:00 Intake Total 110.0 ml 250 ml Output Total 900 ml 2600 ml Balance -790.0 ml -2350 ml Intake Oral 250 ml IV Total 110.0 ml Output Urine Total 900 ml 2600 ml General Appearance: no acute distress HEENT: normocephalic Respiratory/Chest: chest wall non-tender, lungs clear Cardiovascular: normal peripheral pulses Abdomen: normal bowel sounds Microbiology Date/Time Source Procedure Growth Status 09/08/19 17:30 Indwelling Cath Urine Culture - Preliminary NO GROWTH AFTER 24 HOURS Resulted Laboratory Tests 09/10/19 05:30: White Blood Count 9.0, Red Blood Count 3.98L, Hemoglobin 12.2L, Hematocrit 35.6L , Mean Corpuscular Volume 89, Mean Corpuscular Hemoglobin 30.7, Mean Corpuscular Hemoglobin Concent 34.3, Red Cell Distribution Width 12.0, Platelet Count 238, Mean Platelet Volume 7.7, Neutrophils (%) (Auto) 57.3, Lymphocytes (% ) (Auto) 25.8, Monocytes (%) (Auto) 11.0H, Eosinophils (%) (Auto) 4.9H, Basophils (%) (Auto) 1.0, Sodium Level 143, Potassium Level 3.6, Chloride Level 105, Carbon Dioxide Level 27, Anion Gap 11, Blood Urea Nitrogen 13, Creatinine 1.3, Estimat Glomerular Filtration Rate 56.3, Glucose Level 150H, Calcium Level 10.8H Current Medications Medications (Trade) Dose Ordered Sig/William Route PRN Reason Start Time Stop Time Status Last Admin Dose Admin Acetaminophen (Tylenol) 650 mg Q4H PRN ORAL FEVER 09/06/19 09:30 10/06/19 09:29 Acetaminophen (Tylenol) 650 mg Q6H PRN ORAL Mild Pain (Pain Scale 1-3) 09/06/19 09:30 10/06/19 09:29 09/10/19 08:54 Atorvastatin Calcium (Lipitor) 20 mg BEDTIME ORAL 09/06/19 21:00 10/06/19 20:59 09/09/19 21:34 Cephalexin (Keflex) 500 mg Q6HR ORAL 09/07/19 12:00 09/14/19 11:59 09/10/19 05:51 Dextrose (Dextrose 50%) 25 ml Q30M PRN IV Hypoglycemia 09/07/19 10:45 10/07/19 10:44 Dextrose (Dextrose 50%) 50 ml Q30M PRN IV Hypoglycemia 09/07/19 10:45 10/07/19 10:44 Docusate Sodium (Colace) 100 mg TWICE A DAY ORAL 09/06/19 18:00 10/06/19 17:59 09/10/19 08:53 Heparin Sodium (Porcine) (Heparin 5000 units/ml) 5,000 units EVERY 8 HOURS SUBQ 09/07/19 22:00 10/07/19 21:59 09/10/19 05:51 Hydromorphone HCl (Dilaudid) 2 mg Q3H PRN IVP pain score 7-10 09/06/19 11:33 09/13/19 11:32 09/08/19 01:24 Metoprolol Succinate (Toprol XL) 25 mg DAILY ORAL 09/07/19 09:00 10/07/19 08:59 09/10/19 08:53 Ondansetron HCl (Zofran) 4 mg Q6H PRN IVP Nausea & Vomiting 09/06/19 09:30 10/06/19 09:29 Piperacillin Sod/ Tazobactam Sod 3.375 gm/Sodium Chloride 110 ml @ 27.5 mls/hr Q8H IVPB 09/08/19 16:30 09/15/19 16:29 09/10/19 08:53 Temazepam (RestoriL) 7.5 mg DAILYPRN PRN ORAL Insomnia 09/06/19 11:34 09/13/19 11:33 Desmond Esquivel MD Sep 10, 2019 10:35
--- NOTE | 2019-09-10 11:45 | Surgery Progress Note ---
Surgery Progress Note Subjective Symptoms: improved, tolerating diet, passing flatus, BM, pain decreased Additional Comments hunt removed waiting to use bathroom erythema resolved likely from tape no n/v/f/c comfortable ambulatory Objective Last 24 Hour Vital Signs Date Time Temp Pulse Resp B/P (MAP) Pulse Ox O2 Delivery O2 Flow Rate FiO2 09/10/19 08:53 83 154/101 09/10/19 08:00 98.4 83 18 154/101 (118) 96 09/10/19 04:00 97.2 116 18 148/105 (119) 97 09/10/19 00:00 98.9 123 16 115/77 (90) 97 09/09/19 21:00 Room Air 09/09/19 20:00 98.4 99 20 139/96 (110) 96 09/09/19 16:30 115 09/09/19 16:00 97.3 120 20 133/70 (91) 100 09/09/19 12:00 98.7 121 20 133/88 (103) 100 I&O Intake and Output 09/09/19 09/10/19 19:00 07:00 Intake Total 110.0 ml 250 ml Output Total 900 ml 2600 ml Balance -790.0 ml -2350 ml Intake Oral 250 ml IV Total 110.0 ml Output Urine Total 900 ml 2600 ml Dressing: dry Wound: clean Cardiovascular: RSR Respiratory: clear Abdomen: soft, flat, non-tender, present bowel sounds, non-distended Extremities: no edema, no tenderness, no cyanosis Laboratory Tests Test 09/10/19 05:30 White Blood Count 9.0 K/UL (4.8-10.8) Red Blood Count 3.98 M/UL (4.70-6.10) L Hemoglobin 12.2 G/DL (14.2-18.0) L Hematocrit 35.6 % (42.0-52.0) L Mean Corpuscular Volume 89 FL (80-99) Mean Corpuscular Hemoglobin 30.7 PG (27.0-31.0) Mean Corpuscular Hemoglobin Concent 34.3 G/DL (32.0-36.0) Red Cell Distribution Width 12.0 % (11.6-14.8) Platelet Count 238 K/UL (150-450) Mean Platelet Volume 7.7 FL (6.5-10.1) Neutrophils (%) (Auto) 57.3 % (45.0-75.0) Lymphocytes (%) (Auto) 25.8 % (20.0-45.0) Monocytes (%) (Auto) 11.0 % (1.0-10.0) H Eosinophils (%) (Auto) 4.9 % (0.0-3.0) H Basophils (%) (Auto) 1.0 % (0.0-2.0) Sodium Level 143 MMOL/L (136-145) Potassium Level 3.6 MMOL/L (3.5-5.1) Chloride Level 105 MMOL/L (98-107) Carbon Dioxide Level 27 MMOL/L (21-32) Anion Gap 11 mmol/L (5-15) Blood Urea Nitrogen 13 mg/dL (7-18) Creatinine 1.3 MG/DL (0.55-1.30) Estimat Glomerular Filtration Rate 56.3 mL/min (>60) Glucose Level 150 MG/DL (74-106) H Calcium Level 10.8 MG/DL (8.5-10.1) H Plan Problems: (1) Urinary retention (2) Bladder stones Assessment & Plan: Abdominal pain status post prostatectomy by urology Doing well Slowly getting out of bed History of DVT prior on anticoagulation High risk for bleeding postoperatively Started on prophylactic heparin Hold Lovenox given renal Tolerating diet Urine stable wound noted will monitor heparin diet ambulatory improving d/c home hunt out needs to urinate first resume home meds f/u with me or dr Jarvis in 1 week for staple removal Thank you Fred Foley Sep 10, 2019 11:45
[2019-09-10 12:00] VITALS: BP 123/82
--- NOTE | 2019-09-10 15:15 | NUR ---
NURSE NOTES: Pt voided about 200 ml of dark, brownish red urine; pt's requested I notify Dr. Burris about color; awaiting call back. Will continue to monitor.
[2019-09-10] MEDS ORDERED: NS Irrig 4000ml IRRIG ONE (15:51)
[2019-09-10] MEDS ORDERED: NS Irrig 2000ml IRRIG ONE (15:51)
[2019-09-10 16:00] VITALS: BP 127/88
--- NOTE | 2019-09-10 16:15 | NUR ---
NURSE NOTES: Per Dr. Burris, OK to D/C pt home and encouraged pt to drink lots of fluids; also stated pt is to f/u w/him at his office tomorrow at 1000. Pt verbalized understanding.
--- NOTE | 2019-09-10 17:30 | NUR ---
NURSE NOTES: Pt D/C'd home w/all belongings accounted for; DME FWW; pain med Rx; and D/C summary and was instructed to f/u w/Dr. Burris 09/11/19 at 1000. ID wristband and IV H/L removed before D/C; escorted pt via w/c to 's vehicle.
--- NOTE | 2019-09-12 01:15 | Operative Note - Dictated ---
OPERATING SURGEON: Juan Antonio Salazar M.D. VOCATIONAL REHAB CONSULTANT: Fran Burris M.D. ANESTHESIA: General endotracheal. PREOPERATIVE DIAGNOSIS: Benign prostatic hypertrophy. POSTOPERATIVE DIAGNOSES: 1. Benign prostatic hypertrophy. 2. Preperitoneal adhesions. OPERATION PERFORMED: Exploration of the intraperitoneal area. BACKGROUND: The patient is a 58-year-old male with benign prostatic hypertrophy, who was elected to undergo prostatectomy by Dr. Fran Burris. The patient had a previous intervention in the right lower quadrant and I was requested by Dr. Fran Burris to help with access to the prostate. OPERATIVE FINDINGS: Dense adhesions between the anterior abdominal wall and fascia in prostatic gland. OPERATIVE PROCEDURE: The patient was identified, brought to the operating room, and positioned supine with general endotracheal anesthesia being induced. The urinary bladder was decompressed with the Bautista catheter and the lower abdomen was prepped and draped in usual sterile fashion. After that, the lower midline skin incision was performed starting from fascia which was opened, and at that moment dense adhesions were found on the right side. The adhesions between the intraperitoneal and superior and inferior leaflets of fascia was divided sharply and bluntly. The rectus muscle was off the intraperitoneal area. I performed a careful intraperitoneal dissection to dissect off the prostatic gland and the preperitoneal structures of the pelvic floor taking care to avoid injury to the vessels and the ureter. Hemostasis was confirmed. The right side of the prostatic gland was completely off the pelvic wall. The generous space was created to perform the prostatectomy. After that, the left side of the prostate gland was mobilized in the same fashion, however, it was less difficult. After this, the whole prostatic gland was mobilized. Dr. Burris proceeded with the urological procedure and he will dictate his report separately. Juan Antonio Salazar M.D. DR: CONNOR JOB#: [id number] CC:
--- NOTE | 2019-09-12 11:30 | Discharge Summary ---
Discharge Summary Hospital Course Date of Admission Sep 06, 2019 at 05:57 Date of Discharge Sep 10, 2019 at 17:20 Admitting Diagnosis Chronic urinary retention BPH Bladder stones Reason for Hospitalization: Elective surgery HPI Onesimo Duarte is a 58 year old male who was admitted on Sep 06, 2019 at 05:57 fo chronic urinary retention, BPH . bladder stones. Patient was admitted for elective surgery. Consultations Dr Esquivel - IM/pulmo Procedures s/p 09/06/[address] Burris Simple retropubic prostatectomy with open cystolitholapaxy. Hospital Course status post surgery :prostatectomy and cystolapaxy course of recovery was uneventful initially IVF and continuous bladder irrigation pain management was addressed anticoagulation was on hold as per discussion with patient's cost engineer Dr. Ritesh Atwood SCD and Heparin SQ provided ambulation encouraged patient slowly started on diet and advanced as tolerated antiemetic provided as needed patient was able to tolerate diet IV fluids discontinued Bautista catheter removed patient voided without difficulties home medications resumed urien culture was negative, leukocytosis resolved bowel regimen instituted patient remains hemodynamically stable incision with jessica , clean and dry patient clinically stabilized and was ready for discharge home discharge instruction provided outpatient follow-up with surgeon for staple removal in 1 week FINAL DIAGNOSES Chronic urinary retention BPH Bladder stones status post prostatectomy and cystolapaxy. Hyperglycemia/diabetes mellitus. Atrial fibrillation, previously on anticoagulation. Hypertension. Hyperlipidemia. History of previous DVT and PE. History of chronic atrial fibrillation. Discharge Medications New Medications: Hydrocodone Bit/Acetaminophen 5-325* ([place] 5-325*) 1 Each Tablet 1 TAB ORAL Q6H PRN for 10 Days, #30 TAB 0 Refills Continued Medications: Metoprolol Succinate* (Metoprolol Succinate*) 25 Mg Tab.er.24h 25 MG ORAL DAILY for HEART, TAB (This prescription has been renewed) Rivaroxaban (Xarelto*) 10 Mg Tablet 20 MG ORAL DAILY for PREVENT BLOOD CLOT, #30 TAB 0 Refills (This prescription has been renewed) Rosuvastatin Calcium* (Crestor*) 10 Mg Tablet 10 MG ORAL DAILY for CHOLESTEROL, TAB (This prescription has been renewed) Sitagliptin Phos/Metformin Hcl (Janumet 50-1,000 Mg Tablet) 1 Each Tablet 1 TAB ORAL TWICE A DAY for DM, TAB (This prescription has been renewed) Discharge Condition Upon Discharge: stable Discharge Disposition Patient was discharged home Discharge Instructions Discharge Instructions Special Instructions I have been assigned to complete a D/C Summary on this account. I was not involved in the patient management Sara Gonzalez NP Sep 12, 2019 11:30
== END 2019-09-10 17:20 | disposition home or self-care (01) | DRG 707 ==
LOC: SDSOVERFLO 05:57 → 3E 10:45
PROC: 0TCB0ZZ Extirpation of Matter from Bladder, Open Approach (ICD-10-PCS; principal; 2019-09-06 07:30)
PROC: 0VT00ZZ Resection of Prostate, Open Approach (ICD-10-PCS; principal; 2019-09-06 07:30)
PROC: 0DNW0ZZ Release Peritoneum, Open Approach (ICD-10-PCS; principal; 2019-09-06 07:30)
DX: N40.1 Benign prostatic hyperplasia with lower urinary tract symptoms (principal); I48.20 Chronic atrial fibrillation, unspecified; N21.0 Calculus in bladder; R33.8 Other retention of urine; E11.65 Type 2 diabetes mellitus with hyperglycemia; I10 Essential (primary) hypertension; Z79.01 Long term (current) use of anticoagulants; E78.5 Hyperlipidemia, unspecified; Z86.718 Personal history of other venous thrombosis and embolism; Z86.711 Personal history of pulmonary embolism; Z86.73 Personal history of transient ischemic attack (TIA), and cerebral infarction without residual deficits; Z79.84 Long term (current) use of oral hypoglycemic drugs; K66.0 Peritoneal adhesions (postprocedural) (postinfection)
CPT/HCPCS: 36415; 80048; 82330; 82962; 83735; 84100; 85007; 85025; 85610; 85730; 86850; 86900; 86901; 87081; 87086; 94003; 94150; J2250; J2405; J2765